=== PATIENT | female | born 1995 | race Hispanic/Latino ===

== ENCOUNTER → 2016-06-07 | Outpatient (REF) | payer OTHER ==
[2016-06-07 17:53] LABS: MEAN CORPUSCULAR HEMOGLOBIN 30.6 pg (27.0-33.0); MEAN CORPUSCULAR HGB CONC 34.1 g/dl (32.0-36.5); MEAN CORPUSCULAR VOLUME 89.7 fl (80.0-96.0); RED CELL DISTRIBUTION WIDTH 12.6 % (11.5-14.5); WHITE BLOOD COUNT 7.3 K/mm3 (4.0-10.0)
[2016-06-07 17:58] LABS: CONTROL LINE MONO RF C INT CTR LINE PRESENT
[2016-06-07 18:34] LABS: ALBUMIN 3.8 GM/DL (3.2-5.2); ALBUMIN/GLOBULIN RATIO 1.03 (1.00-1.93); ALKALINE PHOSPHATASE 100 U/L (45-117); ALT/SGPT 29 U/L (12-78); ANION GAP 8 MEQ/L (8-16); AST/SGOT 20 U/L (15-37); BILIRUBIN,TOTAL 0.4 MG/DL (0.2-1.0); BLOOD UREA NITROGEN 11 MG/DL (7-18); CALCIUM LEVEL 8.9 MG/DL (8.5-10.1); CARBON DIOXIDE LEVEL 27 MEQ/L (21-32); CHLORIDE LEVEL 107 MEQ/L (98-107); CREATININE FOR GFR 0.93 MG/DL (0.55-1.02); FERRITIN 39 NG/ML (8-252); FREE T4 0.98 NG/DL (0.76-1.46); GLOMERULAR FILTRATION RATE > 60.0 (>60); GLUCOSE, FASTING 69 MG/DL (70-105); POTASSIUM SERUM 3.7 MEQ/L (3.5-5.1); SODIUM LEVEL 142 MEQ/L (136-145); TOTAL PROTEIN 7.5 GM/DL (6.4-8.2)
[2016-06-07 18:54] LABS: BANDS 1 % (< 11); BASOPHILS 1 % (0-4); EOSINOPHILS 8 % (0-5)
== END ==
LOC: M SFHCCLAY 10:58
PROVIDERS: ATTEND Family Medicine
DX: R53.83 Other fatigue (principal); R59.1 Generalized enlarged lymph nodes

== ENCOUNTER → 2016-09-30 | Outpatient (REF) | payer OTHER | LOC: M SFHCLERA 13:42 | PROVIDERS: ATTEND Nurse Practitioner Family | DX: J06.9 Acute upper respiratory infection, unspecified (principal) ==

== ENCOUNTER → 2016-11-16 | Outpatient (REF) | payer OTHER | LOC: M LAB REF 17:10 | PROVIDERS: ATTEND Advanced Practice Midwife | DX: Z11.3 Encounter for screening for infections with a predominantly sexual mode of transmission (principal) ==

== ENCOUNTER → 2016-12-08 | Outpatient (REF) | payer OTHER | LOC: M LAB REF 13:37 | PROVIDERS: ATTEND Advanced Practice Midwife | DX: Z12.4 Encounter for screening for malignant neoplasm of cervix (principal); B37.3 Candidiasis of vulva and vagina ==

== ENCOUNTER 2017-05-06 20:23 | Emergency (ER) | payer OTHER ==
[2017-05-06] MEDS: IBUPROFEN 600 MG TAB PO (20:45)
== END 2017-05-06 21:53 | disposition home or self-care (01) ==
LOC: M ED 20:23
DX: S83.92XA Sprain of unspecified site of left knee, initial encounter (principal); W19.XXXA Unspecified fall, initial encounter; Y92.9 Unspecified place or not applicable; Y93.23 Activity, snow (alpine) (downhill) skiing, snowboarding, sledding, tobogganing and snow tubing; M25.462 Effusion, left knee; Z79.899 Other long term (current) drug therapy; Z88.0 Allergy status to penicillin
CPT/HCPCS: 73564

== ENCOUNTER → 2017-08-03 | Outpatient (REF) | payer OTHER | LOC: M SFHCLERA 20:26 | DX: J02.9 Acute pharyngitis, unspecified (principal) ==

== ENCOUNTER → 2017-12-11 | Outpatient (REF) | payer OTHER ==
[2017-12-11 22:50] LABS: CHLAMYDIA DNA AMPLIFICATION POSITIVE (NEGATIVE); GC DNA AMPLIFICATION NEGATIVE (NEGATIVE)
== END ==
LOC: M LAB REF 17:17
DX: R10.2 Pelvic and perineal pain (principal)

== ENCOUNTER → 2018-03-20 | Outpatient (CLI) | payer OTHER | LOC: M RAD 15:19 | DX: R10.2 Pelvic and perineal pain (principal) | CPT/HCPCS: 76856 ==

== ENCOUNTER → 2018-05-08 | Outpatient (REF) | payer MEDICAID ==
[~2018-05-08] MED LIST: BUPR150T3; IBUP-1022 PO
[2018-05-09 13:11] LABS: APPEARANCE, URINE TURBID (CLEAR); BACTERIA, URINE AUTO NEGATIVE (NEGATIVE); BILIRUBIN, URINE AUTO NEGATIVE (NEGATIVE); BLOOD, URINE BLOOD NEGATIVE (NEGATIVE); COLOR, URINE RED (YELLOW); GLUCOSE, URINE (UA) AUTO NEGATIVE (NEGATIVE); KETONE, URINE AUTO NEGATIVE (NEGATIVE); LEUKOCYTE ESTERASE, URINE AUTO NEGATIVE (NEGATIVE); MUCUS, URINE LARGE (NEGATIVE); NITRITE, URINE AUTO POSITIVE (NEGATIVE); PROTEIN, URINE AUTO 1+ mg/dL (NEGATIVE); RBC, URINE AUTO 0 /HPF (0-3); SPECIFIC GRAVITY URINE AUTO 1.026 (1.002-1.035); SQUAMOUS EPITHELIAL CELL UR AU 5 /HPF (0-6); WBC, URINE AUTO 6 /HPF (0-3)
[2018-05-09 14:38] LABS: CHLAMYDIA DNA AMPLIFICATION NEGATIVE (NEGATIVE); GC DNA AMPLIFICATION NEGATIVE (NEGATIVE)
== END ==
LOC: M SFHCCLAY 14:15
PROVIDERS: ATTEND Nurse Practitioner Family
DX: N39.0 Urinary tract infection, site not specified (principal)

== ENCOUNTER → 2018-07-23 | Outpatient (REF) | payer MEDICAID ==
[2018-07-23 12:01] LABS: HEMATOCRIT 40.4 % (36.0-47.0); HEMOGLOBIN 13.1 g/dl (12.0-15.5); MEAN CORPUSCULAR HEMOGLOBIN 30.8 pg (27.0-33.0); MEAN CORPUSCULAR HGB CONC 32.4 g/dl (32.0-36.5); MEAN CORPUSCULAR VOLUME 95.1 fl (80.0-96.0); PLATELET COUNT, AUTOMATED 308 10^3/uL (150-450); RED BLOOD COUNT 4.25 10^6/uL (4.00-5.40); WHITE BLOOD COUNT 8.5 10^3/uL (4.0-10.0)
[2018-07-23 12:17] LABS: ALBUMIN 3.6 GM/DL (3.2-5.2); ALT/SGPT 31 U/L (12-78); BILIRUBIN,TOTAL 0.3 MG/DL (0.2-1.0); BLOOD UREA NITROGEN 10 MG/DL (7-18); CALCIUM LEVEL 8.8 MG/DL (8.5-10.1); CARBON DIOXIDE LEVEL 25 MEQ/L (21-32); CHLORIDE LEVEL 108 MEQ/L (98-107); CHOLESTEROL LEVEL 152 MG/DL (<200); CHOLESTEROL RISK RATIO 3.534 (<5); CREATININE FOR GFR 0.76 MG/DL (0.55-1.30); GLOMERULAR FILTRATION RATE > 60.0 (>60); GLUCOSE, FASTING 95 MG/DL (70-100); HDL CHOLESTEROL 43 MG/DL (>40); LDL CHOLESTEROL 91 MG/DL (<100); NON-HDL-C 109 MG/DL; POTASSIUM SERUM 4.2 MEQ/L (3.5-5.1); SODIUM LEVEL 139 MEQ/L (136-145); TOTAL 25(OH) VITAMIN D 9.7 NG/ML (30.0-100.0); TOTAL PROTEIN 7.5 GM/DL (6.4-8.2); TRIGLYCERIDES LEVEL 90 MG/DL (<150)
== END ==
LOC: M SFHCCLAY 08:30
PROVIDERS: ATTEND Nurse Practitioner Family
DX: L70.9 Acne, unspecified (principal); R63.5 Abnormal weight gain; E55.9 Vitamin D deficiency, unspecified

== ENCOUNTER → 2018-08-01 | Outpatient (REF) | payer MEDICAID ==
[2018-08-01 20:33] LABS: CHLAMYDIA DNA AMPLIFICATION NEGATIVE (NEGATIVE); GC DNA AMPLIFICATION NEGATIVE (NEGATIVE)
== END ==
LOC: M LAB REF 17:19
PROVIDERS: ATTEND Advanced Practice Midwife
DX: Z11.3 Encounter for screening for infections with a predominantly sexual mode of transmission (principal)

== ENCOUNTER 2018-08-09 23:05 | Emergency (ER) | payer MEDICAID ==
[~2018-08-09] VITALS: Ht 157.5 cm; Wt 92.7 kg
[2018-08-09] MEDS ORDERED: ALLE180T33 PO (23:22)
[2018-08-09] MEDS ORDERED: VITAD1000T PO (23:22)
[2018-08-09] MEDS ORDERED: DOXY-350 PO (23:22)
[2018-08-09] MEDS ORDERED: EFFE150C2 PO (23:22)
[2018-08-09] MEDS ORDERED: ADDE10TA PO (23:22)
[2018-08-10 00:31] LABS: BASO # 0.1 10^3/uL (0.0-0.2); BASO % 0.4 % (0.0-1.0); EOS # 0.8 10^3/uL (0.0-0.50); EOS % 6.3 % (0.0-3.0); HEMATOCRIT 35.4 % (36.0-47.0); HEMOGLOBIN 11.7 g/dl (12.0-15.5); LYMPH % 29.5 % (24.0-44.0); MEAN CORPUSCULAR HGB CONC 33.1 g/dl (32.0-36.5); MEAN CORPUSCULAR VOLUME 93.7 fl (80.0-96.0); MONO # 0.8 10^3/uL (0.0-0.8); MONO % 5.8 % (0.0-5.0); NEUTROPHILS # 7.7 10^3/uL (1.8-7.7); NEUTROPHILS % 57.8 % (36.0-66.0); PLATELET COUNT, AUTOMATED 336 10^3/uL (150-450); RED BLOOD COUNT 3.78 10^6/uL (4.00-5.40); WHITE BLOOD COUNT 13.4 10^3/uL (4.0-10.0)
[2018-08-10 00:46] LABS: BLOOD UREA NITROGEN 17 MG/DL (7-18); CALCIUM LEVEL 8.9 MG/DL (8.5-10.1); CARBON DIOXIDE LEVEL 28 MEQ/L (21-32); CHLORIDE LEVEL 107 MEQ/L (98-107); CREATININE FOR GFR 0.87 MG/DL (0.55-1.30); GLOMERULAR FILTRATION RATE > 60.0 (>60); GLUCOSE, FASTING 80 MG/DL (70-100); POTASSIUM SERUM 3.9 MEQ/L (3.5-5.1); SODIUM LEVEL 139 MEQ/L (136-145)
[2018-08-10] MEDS ORDERED: ISOVUE-370 76% 100ML VIAL (Q9967) As Ordered ONE (00:55)
[2018-08-10] MEDS ORDERED: KETOROLAC 30 MG/ML VIAL (J1885) IV ONE (01:00)
[2018-08-10 01:12] LABS: HCG, SERUM QUALITATIVE NEGATIVE (NEGATIVE)
[2018-08-10 04:00] VITALS: BP 102/51
--- NOTE | 2018-08-10 09:09 | REP ---
CT abdomen and pelvis with IV but without oral contrast: Repeat dictation. History: Abdomen pain right lower quadrant pain. 3-7 days post IUD placement. Preliminary report is provided at the time of examination by [facility]. Findings: Preliminary digital remote broadcast engineer radiograph is unremarkable. An IUD is noted in the central pelvis. Bowel gas pattern is normal. The lung bases are clear on axial CT images. The liver and the spleen are normal in size and homogeneous in texture. The gallbladder is small and contracted but otherwise unremarkable. No adrenal lesion is seen. Pancreas is unremarkable. The kidneys enhance symmetrically and are morphologically intact. There are scattered normal-sized mesenteric and periaortic lymph nodes. No definite adenopathy. Small and large bowel loops are unremarkable in the abdomen and pelvis. The appendix is not identified but there are no inflammatory changes at the cecal tip or elsewhere in the abdomen. IUD is seen centrally placed within the uterus. There is a 2.7 cm right ovarian cyst consistent with a follicle cyst. No free fluid is seen. Urinary bladder is unremarkable. No abdominal wall defect is seen. Impression: 2.7 cm cyst in the right ovary consistent with a follicle cyst. IUD in the uterus. No other significant finding. Electronically Signed by Jack Craig MD 08/10/2018 09:28 A
== END 2018-08-10 04:07 | disposition home or self-care (01) ==
LOC: M ED 23:05
DX: N83.201 Unspecified ovarian cyst, right side (principal); Z97.5 Presence of (intrauterine) contraceptive device; Z88.0 Allergy status to penicillin; Z79.899 Other long term (current) drug therapy
CPT/HCPCS: 36415; 74177; 80048; 81001; 81025; 84703; 85025; 96374; 99284; J1885; Q9967

== ENCOUNTER → 2018-11-26 | Outpatient (REF) | payer MEDICAID ==
[~2018-11-26] MED LIST changes: +ADDE10TA PO; +ALLE180T33 PO; +DOXY-350 PO; +EFFE150C2 PO; +VITAD1000T PO
[2018-11-27 13:23] LABS: CHLAMYDIA DNA AMPLIFICATION NEGATIVE (NEGATIVE); GC DNA AMPLIFICATION NEGATIVE (NEGATIVE)
== END ==
LOC: M SFHCLERA 18:47
PROVIDERS: ATTEND Nurse Practitioner Family
DX: R30.0 Dysuria (principal)

== ENCOUNTER → 2018-11-27 | Outpatient (REF) | payer MEDICAID ==
[2018-11-27 21:09] LABS: CHLAMYDIA DNA AMPLIFICATION NEGATIVE (NEGATIVE); GC DNA AMPLIFICATION NEGATIVE (NEGATIVE)
== END ==
LOC: M LAB REF 17:59
PROVIDERS: ATTEND Advanced Practice Midwife
DX: Z11.3 Encounter for screening for infections with a predominantly sexual mode of transmission (principal)

== ENCOUNTER → 2018-11-28 | Outpatient (REF) | payer MEDICAID | LOC: M SFHCCLAY 10:31 | PROVIDERS: ATTEND Nurse Practitioner Family | DX: R35.0 Frequency of micturition (principal) ==

== ENCOUNTER → 2018-12-03 | Outpatient (REF) | payer MEDICAID | LOC: M SMT 13:08 | PROVIDERS: ATTEND Urology | DX: R30.0 Dysuria (principal) ==

== ENCOUNTER 2018-12-14 10:26 | Day surgery (SDC) | payer MEDICAID ==
[~2018-12-14] VITALS: Ht 157.5 cm; Wt 93.0 kg
[~2018-12-14 10:26] MED LIST changes: +CHOL100029 PO; +EXCETAB33 PO; +LIDOCAINE 2% INJ 100 MG/5 ML SDV (FOR ANES.) As Ordered ONE; +LR 1,000 ML IV ONE; +LevoFLOXacin IV 500 MG in APPROPRIATE DILUENT 1 EA IV ONE; +MACR100C43 PO; +MIDAZOLAM INJ 2 MG/2 ML VIAL (J2250) As Ordered ONE; +ONDANSETRON 4MG/2ML VIAL (J2405) As Ordered ONE; +PROPOFOL 200 MG/20 ML VIAL As Ordered ONE; -VITAD1000T PO; +dexameTHASONE 4 MG/ML 1ML VIAL (J1100) As Ordered ONE; +fentaNYL 100 MCG/2 ML INJECTION (J3010) As Ordered ONE
[2018-12-14 11:20] LABS: URINE PREG TEST NEGATIVE (NEGATIVE)
[2018-12-14] MEDS ORDERED: BUPIVACAINE HCL 0.5% 30 ML VIAL As Ordered ONE (12:22)
[2018-12-14] MEDS ORDERED: CIPR-250 PO (12:47)
[2018-12-14] MEDS ORDERED: URIB118C PO (12:47)
[2018-12-14] MEDS ORDERED: MEPERIDINE INJ 25 MG/ML VIAL (J2175) IV PRN (13:15)
[2018-12-14] MEDS ORDERED: PHENAZOPYRIDINE 100 MG TAB PO ONE (13:15)
[2018-12-14] MEDS ORDERED: ONDANSETRON 4MG/2ML VIAL (J2405) IV PRN (13:15)
[2018-12-14] MEDS ORDERED: fentaNYL 100 MCG/2 ML INJECTION (J3010) IV PRN (13:15)
[2018-12-14] MEDS ORDERED: oxyCODONE 5MG TAB PO PRN (13:15)
[2018-12-14] MEDS ORDERED: LR 1,000 ML IV SCH (13:15)
[2018-12-14] MEDS ORDERED: METOCLOPRAMIDE INJ 10MG/2ML VIAL (J2765) IV PRN (13:15)
[2018-12-14 14:28] VITALS: BP 112/68
--- NOTE | 2018-12-14 21:23 | RO ---
DATE OF PROCEDURE: 12/14/2018 PREPROCEDURE DIAGNOSIS: Bladder pain. POSTPROCEDURE DIAGNOSIS: Interstitial cystitis. PROCEDURE: Cystoscopy, hydrodistention, bladder biopsy, fulguration. SURGEON: Sven Tao MD MEDICAL ADMINISTRATIVE SPECIALIST: ANESTHESIA: General. INDICATION: This 23-year-old has been having problems with bladder pain and pain with bladder effluence as well as frequency and urgency symptoms. She is having dyspareunia, and her symptoms have not been responsive to Macrobid. Cultures negative. She is a nonsmoker. She does have a history of irritable bowel syndrome. Office urinalysis was clear with pH 5. She has previously had a negative CT scan. She does have some pain that radiates into her flanks. DESCRIPTION OF PROCEDURE: After obtaining informed consent from the patient, she was taken to the operating room where after sufficient anesthetic she was prepped and draped in the usual manner. The 22-Yemeni diagnostic cystoscope was advanced to the bladder, the bladder inspected with 30- and 70-degree lenses. No mucosal abnormalities were noted on initial inspection. The bladder was then filled to capacity under anesthesia at 20 cm water pressure, and this showed a capacity of 800 mL. Upon emptying, multiple glomerulations were noted on the posterior bladder wall with a few Hunner's ulcers. Phlebotomist Medical Lab Assistant biopsies were obtained and hemostasis obtained with electrocautery. Additional glomerulations were fulgurated. The bladder was emptied and 0.50% Marcaine instilled. The patient went to recovery in satisfactory condition. DISPOSITION: Dismissed home on Uribel one by mouth four times a day as needed for bladder discomfort, Cipro 250 mg twice a day. Diet as tolerated with avoidance of bladder irritants. Activity light. Followup in 3-4 weeks.
== END 2018-12-14 14:28 | disposition home or self-care (01) ==
LOC: M SDC 10:26
PROVIDERS: ATTEND Urology
DX: N94.10 Unspecified dyspareunia (principal); N30.10 Interstitial cystitis (chronic) without hematuria; F41.9 Anxiety disorder, unspecified; F32.9 Major depressive disorder, single episode, unspecified; K21.9 Gastro-esophageal reflux disease without esophagitis; K58.8 Other irritable bowel syndrome; Z88.0 Allergy status to penicillin; Z88.8 Allergy status to other drugs, medicaments and biological substances; Z79.899 Other long term (current) drug therapy
CPT/HCPCS: 52224; 84703; 88305; J1100; J1956; J2250; J2405; J3010

== ENCOUNTER → 2019-01-01 | Outpatient (REF) | payer MEDICAID ==
[~2019-01-01] MED LIST changes: +CIPR-250 PO; -LIDOCAINE 2% INJ 100 MG/5 ML SDV (FOR ANES.) As Ordered ONE; -LR 1,000 ML IV ONE; -LevoFLOXacin IV 500 MG in APPROPRIATE DILUENT 1 EA IV ONE; -MIDAZOLAM INJ 2 MG/2 ML VIAL (J2250) As Ordered ONE; -ONDANSETRON 4MG/2ML VIAL (J2405) As Ordered ONE; -PROPOFOL 200 MG/20 ML VIAL As Ordered ONE; +URIB118C PO; -dexameTHASONE 4 MG/ML 1ML VIAL (J1100) As Ordered ONE; -fentaNYL 100 MCG/2 ML INJECTION (J3010) As Ordered ONE
[2019-01-01 20:12] LABS: APPEARANCE, URINE MANUAL CLOUDY (CLEAR); COLOR, URINE MANUAL YELLOW (YELLOW); PH,URINE MAN 5.5 UNITS (5.0 - 7.0)
[2019-01-01 20:13] LABS: BILIRUBIN, URINE MANUAL NEGATIVE (NEGATIVE); GLUCOSE, URINE (UA) MANUAL NEGATIVE (NEGATIVE); KETONE, URINE MANUAL NEGATIVE (NEGATIVE); NITRITE, URINE MANUAL NEGATIVE (NEGATIVE); PROTEIN, URINE MANUAL NEGATIVE (NEGATIVE); SPECIFIC GRAVITY,URINE MANUAL 1.025 (1.002-1.035); UROBILINOGEN, URINE MANUAL NORMAL (NORMAL)
[2019-01-01 20:14] LABS: BLOOD URINE MANUAL POSITIVE (NEGATIVE); LEUKOCYTE ESTERASE, URINE MAN TRACE (NEGATIVE)
[2019-01-01 20:24] LABS: AMORPHOUS SEDIMENT, URINE LARGE AMOUNT (NEGATIVE); BACTERIA, URINE SMALL AMOUNT; CALCIUM OXALATE CRYSTALS,URINE SMALL AMOUNT /hpf; HYALINE CAST, URINE NONE SEEN /lpf (0-1); SQUAMOUS EPITHELIAL CELL URINE SMALL AMOUNT /hpf (SMALL AMT)
== END ==
LOC: M SMT 17:04
PROVIDERS: ATTEND Nurse Practitioner Women's Health
DX: R30.0 Dysuria (principal)

== ENCOUNTER → 2019-02-04 | Outpatient (REF) | payer MEDICAID ==
[~2019-02-04] MED LIST changes: +LEVO0.5S15 OS
== END ==
LOC: M SMT 19:07
PROVIDERS: ATTEND Urology
DX: N30.10 Interstitial cystitis (chronic) without hematuria (principal)

== ENCOUNTER 2019-02-11 22:07 | Emergency (ER) | payer MEDICAID ==
[~2019-02-11] VITALS: Ht 157.5 cm; Wt 93.6 kg
[~2019-02-11 22:07] MED LIST changes: -LEVO0.5S15 OS
[2019-02-11] MEDS ORDERED: FLUORESCEIN OPHTH 1 MG STRIP OS ONE (23:45)
[2019-02-11] MEDS ORDERED: TETRACAINE 0.5% OPHTH SOLN 4ML OS ONE (23:45)
[2019-02-12] MEDS ORDERED: LEVO0.5S15 OS (00:52)
[2019-02-12 01:05] VITALS: BP 127/81
== END 2019-02-12 01:07 | disposition home or self-care (01) ==
LOC: M ED 22:07
DX: H10.9 Unspecified conjunctivitis (principal); F32.9 Major depressive disorder, single episode, unspecified; F41.9 Anxiety disorder, unspecified; F90.9 Attention-deficit hyperactivity disorder, unspecified type; Z79.899 Other long term (current) drug therapy; Z88.0 Allergy status to penicillin; Z88.8 Allergy status to other drugs, medicaments and biological substances; Z91.048 Other nonmedicinal substance allergy status